=== PATIENT | male | born 1995 | race Caucasian/White ===

== ENCOUNTER 2016-12-23 01:08 | Emergency (ER) | payer BC ==
--- NOTE | ~2016-12-23 | ER ---
PATIENT'S NAME: TJ RAUSCH [facility] AGE: 21 Y [address] ROOM: [place] [address] LOCATION: [facility] ADMIT DATE: 12/23/2016 ER/Outpatient Report DISCHARGE DATE: 12/23/2016 FAMILY PHYSICIAN: Ferny Barlow MD ATTENDING PHYSICIAN: Baylee Hunt HISTORY OF PRESENT ILLNESS: This is a 21-year-old male who presents today with a right forehead laceration near his eyebrow. The patient states that approximately an hour ago, he was at a bar. He had been drinking earlier that day, and he fell and hit the right side of his face on, he thinks, a stair edge while in the bathroom. He did not pass out. He denies any headache. Just did not have really any pain at all, but then when he saw in the mirror, he and decided to come in. Unknown tetanus status, and also status post recent arthroscopy in the left knee for which he is still currently in a knee brace, but otherwise has no other complaints. PAST MEDICAL HISTORY: None. PAST SURGICAL HISTORY: Left ACL repair and arthroscopy. SOCIAL HISTORY: Occasional chewing tobacco and alcohol. MEDICATIONS: None. ALLERGIES: NONE. REVIEW OF SYSTEMS: Reviewed by me and negative with the exception of those discussed in the HPI. PHYSICAL EXAMINATION: VITAL SIGNS: The patient is 5 feet 10 inches. His weight is 66.1 kg. Blood pressure 120/75, heart rate 92, respiratory rate 16, temperature is 96.9, and saturations are 97% on room air. GENERAL: The patient is mildly intoxicated, although he is otherwise speaking in full sentences, answering appropriately. He was able to walk to the ER with a steady gait. He has a friend next to him. He is A and O x4. He moves all extremities without any difficulty. GCS is 15. HEENT: Head: He has a 3 cm linear laceration by the right eyebrow. Hemostasis is controlled. There is no other evidence of trauma. He has no PATIENT'S NAME: TJ RAUSCH [facility] AGE: 21 Y [address] ROOM: [place] [address] LOCATION: [facility] ADMIT DATE: 12/23/2016 ER/Outpatient Report DISCHARGE DATE: 12/23/2016 FAMILY PHYSICIAN: Ferny Barlow MD ATTENDING PHYSICIAN: Baylee Hunt. He has no visual disturbance. No Gonsales sign or raccoon eyes. No evidence of subconjunctival hemorrhage. No drainage from the nose or ears. NECK: Supple. No C-spine tenderness. EMERGENCY ROOM COURSE: The wound was anesthetized with 1% lidocaine with epinephrine, I used about 2 mL. After appropriate anesthesia had been achieved, I cleaned the wound to the best of my ability using high-pressure normal saline. I am able to visualize the total extent of the wound, it does not appear contaminated. I then placed 7 simple interrupted sutures using 5-0 Ethilon. The patient was instructed to go to his primary care doctor, Dr. Barlow or to Urgent Care to get this removed in 5 to 7 days. I also discussed this with his friend who was sitting next to him. Return instructions were given. The patient voiced concerns. I also gave him infection precautions and asked that he follow up with his primary care doctor as needed. He understands the reasons to return to the ER sooner. IMPRESSION: Forehead laceration. BAYLEE HUNT MD CAW/modl /[id number] d: 12/23/168 t: 12/24/16 0407, OUTPATIENT REPORT
== END 2016-12-23 01:50 | disposition disaster alternative care site (69) ==
LOC: GACC 01:08
PROC: 0HQ1XZZ Repair Face Skin, External Approach (ICD-10-PCS; principal; 2016-12-23)
DX: S01.81XA Laceration without foreign body of other part of head, initial encounter (principal); F17.220 Nicotine dependence, chewing tobacco, uncomplicated; W18.09XA Striking against other object with subsequent fall, initial encounter; Y92.002 Bathroom of unspecified non-institutional (private) residence as the place of occurrence of the external cause